=== PATIENT | male | born 1945 | race Caucasian/White ===

== ENCOUNTER → 2017-05-14 | Outpatient (CLI) | payer OTHER, MEDICAID ==
[2016-02-07 14:38] VITALS: BP 120/71
[2017-05-14 09:49] LABS: ALBUMIN 3.4 g/dL (3.4-5.0); BILIRUBIN,DIRECT 0.09 mg/dL (0-0.2); TOTAL PROTEIN 7.5 g/dL (6.4-8.2)
== END ==
LOC: LAB 08:45
PROVIDERS: ATTEND Internal Medicine Gastroenterology
DX: R10.11 Right upper quadrant pain (principal)
CPT/HCPCS: 36415; 80076

== ENCOUNTER 2017-05-28 09:03 | Day surgery (SDC) | payer OTHER, MEDICAID ==
[2017-05-28] MEDS ORDERED: D5 LR 1000 ML 1,000 ML IV ONE (09:07)
[2017-05-28] MEDS ORDERED: DIPRIVAN VIAL 20 ML ONE (10:00)
[2017-05-28] MEDS ORDERED: XYLOCAINE-MPF 1% ONE (10:00)
[2017-05-28 10:37] VITALS: BP 118/60
== END 2017-05-28 10:37 | disposition home or self-care (01) ==
LOC: SURG1 09:03
PROVIDERS: ATTEND Internal Medicine Gastroenterology
PROC: 0DJ08ZZ Inspection of Upper Intestinal Tract, Via Natural or Artificial Opening Endoscopic (ICD-10-PCS; principal; 2017-05-28 11:00)
PROC: 0DB68ZX Excision of Stomach, Via Natural or Artificial Opening Endoscopic, Diagnostic (ICD-10-PCS; principal; 2017-05-28 11:00)
PROC: 0D757ZZ Dilation of Esophagus, Via Natural or Artificial Opening (ICD-10-PCS; principal; 2017-05-28 11:00)
DX: R13.19 Other dysphagia (principal); R10.13 Epigastric pain; K21.9 Gastro-esophageal reflux disease without esophagitis; K20.8 Other esophagitis; R10.11 Right upper quadrant pain; K22.2 Esophageal obstruction; K29.60 Other gastritis without bleeding
CPT/HCPCS: 99100; A4217; J3490; J7120